=== PATIENT | male | born 1950 ===

== ENCOUNTER 2017-06-06 05:59 | Day surgery (SDC) | payer MEDICARE, OTHER ==
[2017-06-05 09:01] VITALS: BMI 17.2
[2017-06-06 07:19] VITALS: O2SAT 100
[2017-06-06] MEDS ORDERED: Propofol 10 mg/ml Inj (20 ML) ONE (07:21)
[2017-06-06] MEDS ORDERED: Lidocaine 1% Inj (20ml) ONE (07:37)
[2017-06-06] MEDS ORDERED: Bupivacaine-Epi 0.25%-1:200,000 PF Inj ONE (07:37)
[2017-06-06] MEDS ORDERED: HEPARIN-NS 5,000 UNITS/500 ML 5,000 UNIT/500 ML BAG IV ONE (07:37)
[2017-06-06] MEDS ORDERED: Iohexol 240 (50 ml) ONE (07:38)
[2017-06-06] MEDS ORDERED: ceFAZolin IV 1 gm in Dextrose 0 GM/0 ML BAG IVPB ONE (07:38)
[2017-06-06] MEDS ORDERED: Bacitracin Ointment 30 GM TUBE ONE (07:48)
[2017-06-06] MEDS ORDERED: ceFAZolin IV 2 gm in Dextrose 1 GM/50 ML BAG IVPB ONE (08:08)
[2017-06-06] MEDS ORDERED: Lactated Ringer's 1,000 ML IV ONE (08:10)
--- NOTE | 2017-06-06 09:26 | PCM.SURG1 ---
Surgeon's Initial Post Op Note - Surgeon's Notes Surgeon: Esther Conley MD Agricultural Equipment Sales Manager: KAYLYNN Mota Type of Anesthesia: General LMA Pre-Operative Diagnosis: Stage 4 colon Cancer Operative Findings: Patent Right IJ on US exam Post-Operative Diagnosis: Stage 4 colon Cancer Operation Performed: Right IJ portacath insertion. US guided venous access. Intra Op flouroscopy Specimen/Specimens Removed: None Estimated Blood Loss: EBL {In ML}: 10 Blood Products Given: N/A Drains Used: No Drains Post-Op Condition: Good Date of Surgery/Procedure: 06/06/17 Time of Surgery/Procedure: 09:26
--- NOTE | 2017-06-06 10:24 | RAD ---
HISTORY: s/p Portacath insertion COMPARISON: No prior. FINDINGS: LUNGS: No active pulmonary disease. Right-sided tunneled central venous port is been placed terminating at the distal superior vena cava region by an apparent right internal jugular approach. PLEURA: No significant pleural effusion identified, no pneumothorax apparent. CARDIOVASCULAR: Normal. OSSEOUS STRUCTURES: No significant abnormalities. VISUALIZED UPPER ABDOMEN: Catheter is noted at the right upper quadrant suggestive of a biliary stent. OTHER FINDINGS: None. IMPRESSION: No acute cardiopulmonary is including pneumothorax. Note is made of right chest port placement as discussed above.
[2017-06-06] MEDS ORDERED: HYDROmorphone 0.5 mg/0.5 ml ISec IVP PRN (11:00)
[2017-06-06 11:02] VITALS: RESP 18; TEMP 97.7
[2017-06-06 11:22] VITALS: BP 127/56; PULSE 75
--- NOTE | 2017-06-06 19:45 | OP ---
PROCEDURE DATE: 06/06/2017 PREOPERATIVE DIAGNOSIS: Stage IV colon cancer. POSTOPERATIVE DIAGNOSIS: Stage IV colon cancer. PROCEDURES: 1. Right internal jugular port-a-cath insertion. 2. Ultrasound-guided venous access. 3. Intraoperative fluoroscopy. SURGEON: The procedure was done by Dr. Yael madden. LABORATORY SUPERVISOR: KAYLYNN Rosa TYPE OF ANESTHESIA: General anesthesia with LMA. ESTIMATED BLOOD LOSS: Around 10 mL. DRAINS: None. PATHOLOGY: None. COMPLICATIONS: None. INTRAOPERATIVE FINDINGS/OPERATIVE PROCEDURE: The patient had a patent right IJ and, on intraoperative steps, this is a 66-year-old male who was diagnosed with stage IV colon cancer and the patient was consented for the port-a-cath insertion and the patient was brought to the OR, placed upon the operating table. After induction of the anesthesia, both neck and upper chest were prepped and draped. Under ultrasound guidance, right IJ venous access was done. Intraoperative fluoroscopy was done to confirm the wire placement and now the right infraclavicular incision was made, 3 cm pouch was created and the catheter was tunneled from the pouch up to the right IJ insertion site and the catheter was introduced into the dilator sheath and intraoperative fluoroscopy confirmation was done for proper placement below the tracheal bifurcation and now the catheter was connected to the port. Port was accessed intraoperatively, it was functioning without any blockage, and now the port was placed into the pouch, secured to the flow and the wound was closed in 2 layers; subcu with 2-0 Vicryl and skin with 4-0 Monocryl. The right IJ insertion site was also closed with 4-0 Monocryl. Dry and sterile dressing was applied. The port was excised one more time and heparin was flushed and the straight heparin was also injected, and after the dry sterile dressing was applied, the patient tolerated the procedure well. Count of instruments was correct. There were no apparent complications. Britton Conley MD
--- NOTE | 2017-06-08 08:02 | CARD ---
APPROVED REPORT EKG Measurement Heart [id number] <Conclusion> Normal sinus rhythm Normal ECG
--- NOTE | 2017-06-08 09:22 | RAD ---
INTRAOPERATIVE FLUOROSCOPY: Intraoperative fluoroscopy was provided to the referring physician to assist in minute port placement spot fluoroscopic image demonstrates right intra internal jugular approach to the placement apparently with the tip of the port terminating at the atria caval junction. Please see operative report for detail. 3.8 seconds of fluoroscopy time was utilized with the cumulative of dose 0.14 mGy radiation. IMPRESSION: PLEASE SEE OP REPORT FURTHER DETAIL.
== END 2017-06-06 11:15 | disposition home or self-care (01) ==
LOC: C.SDS 05:59
PROVIDERS: ATTEND Surgery Surgical Critical Care
DX: C18.9 Malignant neoplasm of colon, unspecified (principal)
CPT/HCPCS: 36556; 71010; 77001; 93005; C1788; J0690; J1644; J2001; J2405; J2704; J3010; J7040; J7120

== ENCOUNTER 2018-06-04 11:08 | Day surgery (SDC) | payer MEDICARE ==
[2017-06-05 09:01] VITALS: BMI 17.2
[2018-06-04] MEDS ORDERED: Bupivacaine 0.25% 20 ML INJ IJ ONE (14:55)
[2018-06-04] MEDS ORDERED: Lidocaine 1% 20 MG/2 ML PF AMP ONE (14:55)
[2018-06-04] MEDS ORDERED: Lactated Ringer's 1,000 ML IV ONE (15:22)
[2018-06-04 16:49] VITALS: RESP 16
--- NOTE | 2018-06-04 17:01 | PCM.SURG1 ---
Surgeon's Initial Post Op Note - Surgeon's Notes Surgeon: Esther Conley MD Knockout Man: None Type of Anesthesia: Moderate Sedation{RN} Pre-Operative Diagnosis: Stage 4 Colon Ca s/p Chemotherapy Operative Findings: Right IJ Portacath Post-Operative Diagnosis: Stage 4 Colon Ca s/p Chemotherapy Operation Performed: Portacath removal. Capsulectomy Specimen/Specimens Removed: Port and catheter Estimated Blood Loss: EBL {In ML}: 10 Blood Products Given: N/A Drains Used: No Drains Post-Op Condition: Good Date of Surgery/Procedure: 06/04/18 Time of Surgery/Procedure: 17:01
[2018-06-04 17:48] VITALS: BP 110/68; PULSE 87; TEMP 97.7; O2SAT 99
--- NOTE | 2018-06-05 04:33 | OP ---
Copied To: Britton Conley MD Attending MD: Britton Conley MD PROCEDURE DATE: 06/04/2018 PREOPERATIVE DIAGNOSIS: Stage IV colon cancer, status post chemotherapy. POSTOPERATIVE DIAGNOSIS: Stage IV colon cancer, status post chemotherapy. PROCEDURES DONE: 1. Port-A-Cath removal. 2. Capsulectomy. SURGEON: Britton Conley MD MEDICARE SPECIALIST: None. TYPE OF ANESTHESIA: Local anesthesia. ESTIMATED BLOOD LOSS: Around 10 mL. DRAINS: None. PATHOLOGY: Port-A-Cath with the capsule was sent for the pathology. COMPLICATIONS: None. INTRAOPERATIVE FINDINGS: The patient has right IJ Port-A-Cath with a thick capsule surrounding the Port-A-Cath. DESCRIPTION OF PROCEDURE: On intraoperative steps, this 67-year-old male was diagnosed with a stage IV colon cancer, and the patient is getting chemotherapy. The patient does not want anymore chemotherapy and wants Port-A-Cath removal done. The patient was consented, brought to the OR, and placed supine on the operating table after induction of the sedation. After induction of the sedation, the right chest and neck area was prepped and draped. Local anesthesia was injected. An incision was made, and the Port-A-Cath was identified, and the capsule was dissected. The Port-A-Cath catheter was sent off the table for pathology, and a [id number] suture was taken at the entry of the catheter to prevent the backbleeding. The patient had a thick capsule and the thick capsule was resected, and it was sent off the table for pathology. The wound was closed with edu and dry sterile dressing was applied. The patient tolerated the procedure well. Count of instrument and gauze was correct. There was no apparent complication. The patient was sent to the postanesthesia care unit in stable condition. Britton Conley MD
== END 2018-06-04 17:25 | disposition home or self-care (01) ==
LOC: C.SDS 11:08
PROVIDERS: ATTEND Surgery Surgical Critical Care
DX: C18.9 Malignant neoplasm of colon, unspecified (principal); Z45.2 Encounter for adjustment and management of vascular access device; Z92.21 Personal history of antineoplastic chemotherapy
CPT/HCPCS: 36590; J7120